=== PATIENT | male | born 1990 | race Caucasian/White ===

== ENCOUNTER 2017-12-05 11:27 | Emergency (ER) | payer OTHER ==
[2017-12-05 11:47] VITALS: BP 100/55
--- NOTE | 2017-12-05 14:00 | UC ---
Upper Extremity HPI - HPI Summary HPI Summary: Woke up this morning with left forearm numbness, tingling and weakness. Denies any recent injury or trauma. Denies any illicit drug use. Is left hand dominant. States he is unable to move his left wrist and hand very well and has unusual twisting movements of his trunk and upper extremities which he reports is baseline for him. No HOFFMAN, neck/back pain. - History of Current Complaint Chief Complaint: UCUpperExtremity Stated Complaint: ARM WEAKNESS Time Seen by Provider: 12/05/17 12:22 Hx Obtained From: Patient Onset/Duration: Sudden Onset, Lasting Hours, Still Present Severity Initially: Moderate Severity Currently: Moderate Pain Intensity: 6 Pain Scale Used: 0-10 Numeric Location Of Pain: Is Discrete @ - LEFT FOREARM Character: Unable to Describe Aggravating Factor(s): Nothing Alleviating Factor(s): Nothing Associated Signs And Symptoms: Positive: Weakness, Numbness/Tingling Related History: Dominant Hand Left - Allergies/Home Medications Allergies/Adverse Reactions: Allergies Allergy/AdvReac Type Severity Reaction Status Date / Time No Known Allergies Allergy Verified 12/05/17 11:41 Home Medications: Home Medications NK [No Home Medications Reported] 12/05/17 [History Confirmed 12/05/17] PMH/Surg Hx/FS Hx/Imm Hx Previously Healthy: Yes - Surgical History Surgical History: Yes Surgery Procedure, Year, and Place: Right Femor surgery - Family History Known Family History: Positive: Hypertension - Social History Alcohol Use: Occasionally Substance Use Type: Marijuana Smoking Status (MU): Heavy Every Day Tobacco Smoker Amount Used/How Often: 1 pack every other day Review of Systems Constitutional: Negative Skin: Bruising Respiratory: Negative Cardiovascular: Negative Gastrointestinal: Negative Musculoskeletal: Decreased ROM All Other Systems Reviewed And Are Negative: Yes Physical Exam Triage Information Reviewed: Yes Appearance: No Pain Distress, Well-Nourished, Other: - EXTREMELY FIDGETY, TWISTING MOVEMENTS OF ARMS AND TRUNK Vital Signs: Initial Vital Signs Temp 98.4 F 12/05/17 11:42 Pulse 68 12/05/17 11:42 Resp 18 12/05/17 11:42 BP 100/55 12/05/17 11:42 Pulse Ox 100 12/05/17 11:42 Vital Signs Reviewed: Yes Eyes: Positive: Conjunctiva Clear ENT: Positive: Hearing grossly normal Neck: Positive: Supple Respiratory: Positive: No respiratory distress, No accessory muscle use Cardiovascular: Positive: Pulses Normal Abdomen Description: Positive: Soft Musculoskeletal: Positive: No Edema, ROM Limited @ - LEFT WRIST/FINGER EXTENSION Neurological: Positive: Alert, Other: - CN II-XII GROSSLY INTACT BILATERALLY. 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 COMPLETELY UNABLE TO EXTEND LEFT WRIST OR LEFT FINGERS. INTACT FLEXION. Psychological: Positive: Age Appropriate Behavior Skin: Positive: Other - ECCHYMOSIS BILATERAL ANTERIOR SHOULDERS Diagnostics - EKG Cardiac Rate: Bradycardia - 56 BPM Cardiac Rhythm: Sinus: Normal Ectopy: PACs ST Segment: Normal Upper Extremity Course/Dx - Differential Dx/Diagnosis Provider Diagnoses: LEFT FOREARM WEAKNESS Discharge - Sign-Out/Discharge Documenting (check all that apply): Discharge/Admit/Transfer - Discharge Plan Condition: Stable Disposition: HOME Patient Education Materials: Paresthesia (ED) Referrals: Jhony Willoughby MD [Primary Care Provider] - If Needed Additional Instructions: UNCLEAR ETIOLOGY OF YOUR SYMPTOMS TODAY. GO DIRECTLY TO THE [facility] ED FOR FURTHER EVALUATION. - Billing Disposition and Condition Condition: STABLE Disposition: HOME
== END 2017-12-05 12:50 | disposition home or self-care (01) ==
LOC: UCEAST 11:27
DX: M62.81 Muscle weakness (generalized) (principal); Z82.49 Family history of ischemic heart disease and other diseases of the circulatory system; F12.90 Cannabis use, unspecified, uncomplicated; F17.210 Nicotine dependence, cigarettes, uncomplicated
CPT/HCPCS: 93005; 99202; G0463

== ENCOUNTER 2017-12-06 12:41 | Emergency (ER) | payer OTHER ==
--- NOTE | 2017-12-06 14:40 | ED ---
Upper Extremity Pain - HPI Summary HPI Summary: Patient here with left wrist weakness since yesterday. Reports he woke up yesterday morning after sleeping with his arm up over his head and noticed his wrist was weak. He is able to recreation adviser and flexed but is unable to extend. Denies known trauma to his head and neck shoulder or upper extremity. No history of same. He reports numbness from his distal tricep region down to the back of his hand and reports pain along the forearm flexor area. Denies fever, chills, nausea, vomiting, chest pain, shortness of breath, abdominal pain. Denies history of neuro deficits or injury and no neurologic pathology known to him from his family history. - History of Current Complaint Chief Complaint: EDExtremityUpper Stated Complaint: LT ARM NUMBNESS Time Seen by Provider: 12/06/17 13:18 Hx Obtained From: Patient - Allergies/Home Medications Allergies/Adverse Reactions: Allergies Allergy/AdvReac Type Severity Reaction Status Date / Time No Known Allergies Allergy Verified 12/05/17 11:41 Home Medications: Home Medications Cetirizine* [ZyrTEC 10 MG TAB*] 10 mg PO DAILY 12/06/17 [History Confirmed 12/06] guaiFENesin ER TAB [Mucinex*] 600 mg PO DAILY 12/06/17 [History Confirmed ] PMH/Surg Hx/FS Hx/Imm Hx Previously Healthy: Yes Endocrine/Hematology History: Denies: Hx Anticoagulant Therapy, Hx Blood Disorders, Hx Thyroid Disease, Hx Anemia, Hx Unexplained Bleeding, Hx Coagulopothy Musculoskeletal History: Denies: Hx Arthritis, Hx Orthopedic Injury, Hx of Fracture(s), Hx Joint Replacement - Surgical History Surgery Procedure, Year, and Place: Right Femor surgery - Immunization History Immunizations Up to Date: Yes - no vaccines recently Infectious Disease History: No Infectious Disease History: Denies: Traveled Outside the [place] in Last 30 Days - Family History Known Family History: Positive: Hypertension - Social History Lives: With Family Alcohol Use: Occasionally Substance Use Type: Reports: Marijuana Hx Tobacco Use: Yes Smoking Status (MU): Heavy Every Day Tobacco Smoker Amount Used/How Often: 1 pack every other day Review of Systems Constitutional: Negative Negative: Fever, Chills, Fatigue Positive: no symptoms reported Positive: Decreased ROM Skin: Negative Positive: Weakness, Numbness. Negative: Headache, Syncope, Slurred Speech Psychological: Normal All Other Systems Reviewed And Are Negative: Yes Physical Exam Triage Information Reviewed: Yes Vital Signs On Initial Exam: Initial Vitals Temp Pulse Resp BP Pulse Ox 97.9 F 73 15 126/78 99 12/06/17 12:45 12/06/17 12:45 12/06/17 12:45 12/06/17 12:45 12/06/17 12:45 Vital Signs Reviewed: Yes Appearance: Positive: Well-Appearing, No Pain Distress, Well-Nourished Skin: Positive: Warm, Skin Color Reflects Adequate Perfusion, Dry Head/Face: Positive: Normal Head/Face Inspection Eyes: Positive: Normal, EOMI ENT: Positive: Normal ENT inspection, Hearing grossly normal, Pharynx normal Respiratory/Lung Sounds: Positive: Breath Sounds Present Cardiovascular: Positive: Pulses are Symmetrical in both Upper and Lower Extremities Abdomen Description: Positive: Nontender, Soft Musculoskeletal: Positive: Strength/ROM Intact - can flex/abduct shoulder; can flex/extend elbow; can flex wrist and recreation adviser, Limited @ - Lt wrist extension Neurological: Positive: Alert, Oriented to Person Place, Time, CN Intact II- III. Negative: Sensory/Motor Intact - decreased sensation over distal tricep region down to dorsal wrist on Lt Psychiatric: Positive: Normal Diagnostics - Vital Signs Vital Signs Temp Pulse Resp BP Pulse Ox 12/06/17 12:45 97.9 F 73 15 126/78 99 - Laboratory Lab Statement: Any lab studies that have been ordered have been reviewed, and results considered in the medical decision making process. Course/Dx - Course Course Of Treatment: Dr. Dong in to see pt - agrees w/ dx. Will provide cock- up splint and out of work x 2 weeks. If sx persist beyond 3 weeks, pt to f/u w/ Dr. Dong. - Diagnoses Provider Diagnoses: Acute radial nerve palsy of left upper extremity Discharge - Sign-Out/Discharge Documenting (check all that apply): Discharge/Admit/Transfer - Discharge Plan Condition: Stable Disposition: HOME Patient Education Materials: Radial Nerve Palsy (ED) Forms: *Work Release Referrals: Amrik Dong MD [Medical Doctor] - Additional Instructions: Wear splint until you regain strength If weakness persists for 3 weeks, call Dr. Dong for a follow-up appointment - Billing Disposition and Condition Condition: STABLE Disposition: HOME
[2017-12-06] MEDS ORDERED: Ibuprofen TAB* 800 MG PO ONE (14:53)
[2017-12-06 16:01] VITALS: BP 113/69
--- NOTE | 2017-12-06 17:19 | CONS ---
NEUROLOGY CONSULTATION: DATE OF CONSULT: 12/06/17 REFERRING PROVIDER: GIRISH Soliz CHIEF COMPLAINT: Left arm weakness and numbness. HISTORY OF PRESENT ILLNESS: Jesse Floyd is a 26-year-old right-handed man who woke up yesterday morning with weakness of his left hand and some numbness. He says he did not take any sedatives, although he might have had an alcoholic beverage, which he forgets for sure. He felt he might have slept in an unusual position, but again not sure. He did wake up in bed. When he got up , he realized he could not extend the left arm at the wrist. He noted an aching sensation in the left forearm. He says that the left arm feels "numb." He distributes the area of numbness pointing along the extensor group of the forearm and the back of the hand. He has some pain up just above that in the posterior humerus area. He has no neck pain or pain near the shoulder. He does not have any numbness or weakness anywhere else. He has no prior history of weakness or numbness of the limbs or extremities, neck injury or neck pain, or back problems or back pain. He gets occasional migraines, but none recently. He has no history of diabetes, hypertension, or heart disease. PAST MEDICAL HISTORY: Completely unremarkable other than seasonal allergies. MEDICATIONS: His only medications at home are: 1. Zyrtec 10 mg p.o. daily. 2. Mucinex 600 mg p.o. daily. ALLERGIES: He does not have any drug allergies. FAMILY HISTORY: Noncontributory. SOCIAL HISTORY: He works as a bioinformatics specialist. He smokes a pack of cigarettes per day and marijuana periodically. He drinks alcohol occasionally. No history of heart disease or diabetes. He denies IV drug use. PHYSICAL EXAM: He is well nourished and well hydrated. He is fairly muscular. Temperature 97.9, blood pressure 126/78, heart rate 70 and regular. Respiratory rate 15, oxygen saturation is 99% on room air. Lungs are clear bilaterally. Heart is in a regular rate and rhythm without murmurs. Neck range of motion is normal. There are no cervical or supraclavicular bruits. Radial pulses are symmetrical in the hands. Neurological Exam: Pupils are equal and there is no ptosis. Eye movements are full. Facial musculature is symmetric. Facial sensation to light touch and pin are symmetric. Palate and tongue appear normal, palate rises symmetrically and tongue protrudes in the midline. There is no dysarthria. On motor exam, he has normal muscle bulk and tone in the upper and lower extremities proximally and distally. He has normal strength except for grade 2 left wrist extensor, finger extensor, and thumb extensor weakness. He has normal brachioradialis and triceps strength on the left. He has normal deltoid , biceps, finger flexor, wrist flexor, and dorsal interossei strength when his wrist is held in a neutral position by the examiner. Sensory exam is intact to light touch in all limbs. He has diminished pin discrimination in the distribution of the left superficial radial sensory nerve. Reflexes are intact and symmetric at biceps, triceps, brachioradialis, and knees. IMPRESSION AND PLAN: Left retrohumeral radial nerve palsy. He has a classic distribution of weakness and he awoke with it. He may have had some alcohol before and may have slept in an unusual position. I told him my impression. I told him the prognosis is for full recovery in over 90% of cases. I told him if it does not improve or resolve within 3 to 4 weeks, I would like to see him in my office. I have spoken with Deana Malloy and she is going to arrange to get him a wrist splint to hold his wrist in neutral, so he can use his hand better. He will probably need an out of work note as well until he gets his strength back. I will see him in followup in the office if symptoms do not resolve as expected. [id number]/CPS #: [id number] [place]
== END 2017-12-06 16:00 | disposition home or self-care (01) ==
LOC: ED 12:41
DX: G56.32 Lesion of radial nerve, left upper limb (principal); F17.210 Nicotine dependence, cigarettes, uncomplicated; Z79.899 Other long term (current) drug therapy
CPT/HCPCS: 99282; A9270-GY

== ENCOUNTER 2017-12-22 12:04 | Emergency (ER) | payer OTHER ==
--- NOTE | 2017-12-22 14:01 | ED ---
Upper Extremity Pain - HPI Summary HPI Summary: Pt here w/ ongoing Lt radial palsy sx. His strength was starting to return since last visit on 12/06/2017 however he is now at a plateau re" streangth. Also he reports he was doing pull ups yesterday and had pain in his forearm as he felt weak trying to pull. Denies burning, popping or tearing sensation. Continues to have paresthesias as he reported at original visit. He was advised to f/u w/ Dr. Dong if sx persistsed for 3+ weeks. He has not tried to contact him as he thought he was supposed to return here to the ED. Requesting somethng for pain. Reports he's allergic to ibuprofen - breaks out in a rash. Tired of taking acetaminophen which he reports does nothing. - History of Current Complaint Chief Complaint: EDExtremityUpper Stated Complaint: LT ARM PAIN & NUMBNESS Time Seen by Provider: 12/22/17 13:31 Hx Obtained From: Patient - Allergies/Home Medications Allergies/Adverse Reactions: Allergies Allergy/AdvReac Type Severity Reaction Status Date / Time acetaminophen [From Tylenol] Allergy Rash Verified 12/22/17 12:10 ibuprofen Allergy Rash Verified 12/22/17 12:10 PMH/Surg Hx/FS Hx/Imm Hx Previously Healthy: No - Lt radial nerve palsy Endocrine/Hematology History: Denies: Hx Anticoagulant Therapy, Hx Blood Disorders, Hx Thyroid Disease, Hx Anemia, Hx Unexplained Bleeding Musculoskeletal History: Denies: Hx Arthritis, Hx Orthopedic Injury - Surgical History Surgery Procedure, Year, and Place: Right Femor surgery Infectious Disease History: No Infectious Disease History: Denies: Traveled Outside the [place] in Last 30 Days - Family History Known Family History: Positive: Hypertension - Social History Alcohol Use: Daily Alcohol Amount: 2 beers a day Substance Use Type: Reports: Marijuana Hx Tobacco Use: Yes Smoking Status (MU): Current Every Day Smoker Amount Used/How Often: 1 pack every other day Review of Systems Constitutional: Negative Negative: Fever, Chills, Fatigue Positive: no symptoms reported Positive: Myalgia, Decreased ROM. Negative: Arthralgia Skin: Negative Positive: Weakness, Paresthesia. Negative: Headache, Numbness, Syncope, Slurred Speech Positive: Anxious All Other Systems Reviewed And Are Negative: Yes Physical Exam Triage Information Reviewed: Yes Vital Signs On Initial Exam: Initial Vitals Temp Pulse Resp BP Pulse Ox 98.9 F 116 15 147/92 99 12/22/17 12:08 12/22/17 12:08 12/22/17 12:08 12/22/17 12:08 12/22/17 12:08 Vital Signs Reviewed: Yes Appearance: Positive: Well-Appearing, No Pain Distress, Well-Nourished Skin: Positive: Warm, Skin Color Reflects Adequate Perfusion, Dry Head/Face: Positive: Normal Head/Face Inspection Eyes: Positive: EOMI ENT: Positive: Hearing grossly normal Cardiovascular: Positive: Normal, Pulses are Symmetrical in both Upper and Lower Extremities Neurological: Positive: Alert, Oriented to Person Place, Time, CN Intact II-III , Reflexes Intact, Other. Negative: Sensory/Motor Intact - reports decreased sensation over distal tricep/volar aspect of forearm Psychiatric: Positive: Anxious Diagnostics - Vital Signs Vital Signs Temp Pulse Resp BP Pulse Ox 12/22/17 12:08 98.9 F 116 15 147/92 99 - Laboratory Lab Statement: Any lab studies that have been ordered have been reviewed, and results considered in the medical decision making process. Course/Dx - Course Course Of Treatment: Suspect radial palsy is still recovering as it's not quite been 3 weeks yet. Most likely injured muscle/tendon while trying to use are before strength returned. Advised f/u w/ Dr. Dong as recommended at original visit. - Diagnoses Provider Diagnoses: Acute radial nerve palsy of left upper extremity, Muscle strain Discharge - Sign-Out/Discharge Documenting (check all that apply): Discharge/Admit/Transfer - Discharge Plan Condition: Stable Disposition: HOME Prescriptions: Gabapentin CAP(*) [Neurontin 100 mg CAP(*)] 100 mg PO BEDTIME #7 cap Patient Education Materials: Radial Nerve Palsy (ED), Muscle Strain (ED) Referrals: Amrik Dong MD [Medical Doctor] - Additional Instructions: You appear to have a muscle strain of your forearm after trying to use your arm while it is still weak. This may be treated with rest, ice, elevation and topical analgesics such as Biofreeze, etc. You may continue acetaminophen 650 mg every 6 hours as needed for pain. Additionally, a short course of gabapentin has been sent to the pharmacy to help relieve pain for sleep at night. This medication may make you drowsy - do not operate machinery while taking. Follow-up with Dr. Houston, the neurologist who saw you at the hospital last time you were here. His contact information is included here. Make sure to tell the scheduling department that you were seen in the hospital by Dr. Dong on December 06 and it was recommended that follow-up if your symptoms persisted/wrosened. Tell them your diagnosis is left radial nerve palsy. - Billing Disposition and Condition Condition: STABLE Disposition: Home
[2017-12-22 14:48] VITALS: BP 137/84
== END 2017-12-22 14:47 | disposition home or self-care (01) ==
LOC: ED 12:04
DX: G56.32 Lesion of radial nerve, left upper limb (principal); T14.8XXA Other injury of unspecified body region, initial encounter; F17.210 Nicotine dependence, cigarettes, uncomplicated; X50.9XXA Other and unspecified overexertion or strenuous movements or postures, initial encounter; Y93.B2 Activity, push-ups, pull-ups, sit-ups; Y92.9 Unspecified place or not applicable; Z88.6 Allergy status to analgesic agent
CPT/HCPCS: 99281